=== PATIENT | male | born 1960 | race Caucasian/White ===

== ENCOUNTER 2020-11-30 07:18 | Day surgery (SDC) | payer MEDICARE, MEDICAID ==
[2020-11-23 12:12] LABS: BASOPHILS % (AUTO) 0.8 % (0-1); EOSINOPHILS # (AUTO) 0.1 X10'3 (0-0.9); EOSINOPHILS % (AUTO) 3.8 % (0-6); LYMPHOCYTES # (AUTO) 1.2 X10'3 (1.1-4.8); LYMPHOCYTES % (AUTO) 32.8 % (21-51); MEAN CORPUSCULAR HEMOGLOBIN 20.6 PG (27.0-31.0); MEAN CORPUSCULAR HGB CONC 30.7 g/dL (33.0-36.5); MEAN CORPUSCULAR VOLUME 67.1 FL (78-98); MEAN PLATELET VOLUME 7.7 FL (7.4-10.4); MONOCYTES # (AUTO) 0.3 X10'3 (0-0.9); MONOCYTES % (AUTO) 8.5 % (2-12); NEUTROPHILS # (AUTO) 1.9 X10'3 (1.8-7.7); NEUTROPHILS % (AUTO) 54.1 % (42-75); PRE OP HEMATOCRIT 28.7 % (42.0-52.0); PRE OP PLATELET COUNT 252 X10'3 (140-440); RED BLOOD COUNT 4.28 X10'6 (4.70-6.10); RED CELL DISTRIBUTION WIDTH 18.9 % (11.5-14.5)
[2020-11-23 12:17] LABS: PRE OP HEMOGLOBIN 8.8 g/dL (14.0-17.9)
[2020-11-23 12:21] LABS: ALBUMIN 3.4 G/DL (3.4-5.0); ALBUMIN/GLOBULIN RATIO 0.9 (1.1-1.5); ALKALINE PHOSPHATASE 77 IU/L (46-116); BLOOD UREA NITROGEN 22 MG/DL (7-18); BUN/CREATININE RATIO 23.9 (5.4-32.0); CALCIUM 8.2 MG/DL (8.5-10.1); CHLORIDE 107 MMOL/L (99-107); CREATININE 0.92 MG/DL (0.60-1.10); PRE OP ALT 24 U/L (30-65); PRE OP ANION GAP 5 (8-16); PRE OP AST 26 U/L (10-37); PRE OP BILIRUB, TOTAL 0.3 MG/DL (0.0-1.0); PRE OP GLUCOSE 79 MG/DL (70-104); PRE OP SODIUM 140 MMOL/L (135-145); TOTAL CARBON DIOXIDE 28.2 MMOL/L (24-32); TOTAL PROTEIN 7.1 G/DL (6.4-8.2); eGFR 84 ML/MIN
[2020-11-23 12:56] LABS: PLATELET ESTIMATE NORMAL
[2020-11-23 13:04] LABS: ANISOCYTOSIS 2+; ELLIPTOCYTES FEW; HYPOCHROMASIA 2+; MICROCYTOSIS 2+; POLYCHROMASIA 1+; TEAR DROP CELLS FEW
[~2020-11-30] VITALS: Ht 170.2 cm; Wt 100.0 kg
[2020-11-30] VITALS (9 sets, daily range): BP systolic 101–139; BP diastolic 52–87
[~2020-11-30 07:18] MED LIST: ALPR-624 PO; AMPH30TA3 PO; GABA600T PO; MULT-1085 PO; ceFAZolin 2gm in dextrose, iso 50 ML IV ONE; famotidine 20mg tablet PO ONE; ringers solution, lacted 1,000 ML IV SCH
[2020-11-30] MEDS ORDERED: ondansetron/PF 4mg/2ml inj IV PRN (09:35)
[2020-11-30] MEDS ORDERED: morphine 2 MG/ML inj. syringe IV PRN (09:35)
[2020-11-30] MEDS ORDERED: labetalol 20mg/4ml (5mg/ml) syringe IV PRN (09:35)
[2020-11-30] MEDS ORDERED: fentaNYL/PF 50MCG/1 ML 2ML syringe IV PRN ×2 (09:35)
[2020-11-30] MEDS ORDERED: hydrALAZINE 20mg/ml inj. IV PRN (09:35)
[2020-11-30] MEDS ORDERED: ringers solution, lacted 1,000 ML IV SCH (09:35)
[2020-11-30] MEDS ORDERED: morphine 4 MG/ML inj SYRINge IV PRN (09:35)
[2020-11-30] MEDS ORDERED: midazolam 2 mg/2 ml injection ONE (09:40)
[2020-11-30] MEDS ORDERED: fentaNYL/PF 50MCG/1 ML 2ML syringe ONE (09:40)
[2020-11-30] MEDS ORDERED: ROPIVAcaine 0.5% (5mg/ml) 30ml vial ONE ×2 (09:43)
[2020-11-30] MEDS ORDERED: succinylcholine 20mg/ml inj IV ONE (09:43)
[2020-11-30] MEDS ORDERED: ondansetron/PF 4mg/2ml inj ONE (09:43)
[2020-11-30] MEDS ORDERED: dexamethasone sod phosphate 4mg/ml inj. ONE (09:43)
[2020-11-30] MEDS ORDERED: propofol inj 20 ML IV ONE (09:44)
[2020-11-30] MEDS ORDERED: LIDOcaine 2% (20mg/ml) 5ml vial ONE (09:44)
[2020-11-30] MEDS ORDERED: sevoflurane 250ml liquid IH ONE (09:46)
[2020-11-30] MEDS ORDERED: ePHEDrine 50MG/ML INJ. ONE ×2 (10:18)
[2020-11-30] MEDS ORDERED: albumin (Human) 5% 250ml 250 ML IV ONE (10:24)
--- NOTE | 2020-11-30 12:20 | NUR ---
Received from OR via [facility], accompanied by Anesthesiologist DR MCLAUGHLIN and report given by Anesthesiologist. 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 Addendum: 11/30/20 at 1241 by Holly Gonzales RN Amended: Links added. Addendum: 11/30/20 at 1246 by Holly Gonzales RN ERROR: DRAINAGE ON TOP SIDE OF DRSG, NOT PALM SIDE OF DRSG.
--- NOTE | 2020-11-30 13:50 | NUR ---
PT ABLE TO PIVOT SAFELY FROM BED TO W/C W/O DIFFICULTY. D/C INSTRUCTIONS GIVEN AND GONE OVER W/PT WHO VERBALIZED UNDERSTANDING. PLACED LEFT ARM IN SLING UNTIL SENSATION RETURNS FOR SAFETY. PT D/CD TO HOME VIA W/C TO PRIVATE VEHICLE W/O INCIDENT. Addendum: 11/30/20 at 1448 by Holly Gonzales RN Amended: Links added.
== END 2020-11-30 13:50 | disposition home or self-care (01) ==
LOC: PAS 07:18
PROVIDERS: ATTEND Orthopaedic Surgery Hand Surgery
DX: S52.502K Unspecified fracture of the lower end of left radius, subsequent encounter for closed fracture with nonunion (principal); S66.212A Strain of extensor muscle, fascia and tendon of left thumb at wrist and hand level, initial encounter; E66.9 Obesity, unspecified; Z68.34 Body mass index [BMI] 34.0-34.9, adult; D64.9 Anemia, unspecified; Z20.822 Contact with and (suspected) exposure to COVID-19; Z79.899 Other long term (current) drug therapy; Z72.89 Other problems related to lifestyle; Z98.890 Other specified postprocedural states; Z98.84 Bariatric surgery status; G89.18 Other acute postprocedural pain; X58.XXXD Exposure to other specified factors, subsequent encounter; X58.XXXA Exposure to other specified factors, initial encounter; Y93.89 Activity, other specified; Y92.89 Other specified places as the place of occurrence of the external cause; Y99.8 Other external cause status
CPT/HCPCS: 20680; 25310; 25820; 36415; 64415; 64417; 76942; 80053; 82948; 85025; 87635; 93005; C1713; J0330; J1100; J2001; J2250; J2405; J2704; J3010; P9045; 85008; A4618; A7000; J2795; J7120

== ENCOUNTER 2021-09-30 13:11 | Outpatient (CLI) | payer BC, MEDICAID ==
[~2021-09-30] VITALS: Ht 170.2 cm; Wt 99.8 kg
[~2021-09-30 13:11] MED LIST changes: -ceFAZolin 2gm in dextrose, iso 50 ML IV ONE; -famotidine 20mg tablet PO ONE; -ringers solution, lacted 1,000 ML IV SCH
[2021-09-30] MEDS ORDERED: METO-384 PO (13:52)
[2021-09-30] MEDS ORDERED: DOCU-21 PO (13:52)
[2021-09-30] MEDS ORDERED: FERR325T34 PO (13:52)
[2021-09-30 14:16] LABS: BASOPHILS % (AUTO) 0.4 % (0-1); EOSINOPHILS # (AUTO) 0.1 X10'3 (0-0.9); EOSINOPHILS % (AUTO) 2.2 % (0-6); LYMPHOCYTES # (AUTO) 1.2 X10'3 (1.1-4.8); LYMPHOCYTES % (AUTO) 27.4 % (21-51); MEAN CORPUSCULAR VOLUME 91.2 FL (78-98); MEAN PLATELET VOLUME 7.9 FL (7.4-10.4); MONOCYTES # (AUTO) 0.4 X10'3 (0-0.9); MONOCYTES % (AUTO) 8.8 % (2-12); NEUTROPHILS # (AUTO) 2.7 X10'3 (1.8-7.7); NEUTROPHILS % (AUTO) 61.2 % (42-75); PRE OP HEMATOCRIT 41.5 % (42.0-52.0); PRE OP HEMOGLOBIN 14.1 g/dL (14.0-17.9); PRE OP PLATELET COUNT 197 X10'3 (140-440); RED BLOOD COUNT 4.55 X10'6 (4.70-6.10); RED CELL DISTRIBUTION WIDTH 13.5 % (11.5-14.5)
[2021-09-30 14:37] LABS: ALBUMIN 3.3 G/DL (3.4-5.0); ALBUMIN/GLOBULIN RATIO 0.9 (1.1-1.5); ALKALINE PHOSPHATASE 70 IU/L (46-116); BLOOD UREA NITROGEN 25 MG/DL (7-18); BUN/CREATININE RATIO 31.3 (5.4-32.0); CALCIUM 8.6 MG/DL (8.5-10.1); CHLORIDE 106 MMOL/L (99-107); PRE OP ALT 32 U/L (30-65); PRE OP ANION GAP 9 (8-16); PRE OP AST 25 U/L (10-37); PRE OP BILIRUB, TOTAL 0.5 MG/DL (0.0-1.0); PRE OP GLUCOSE 97 MG/DL (70-104); PRE OP POTASSIUM 3.6 MMOL/L (3.4-5.1); PRE OP SODIUM 139 MMOL/L (135-145); TOTAL CARBON DIOXIDE 23.8 MMOL/L (24-32); TOTAL PROTEIN 7.1 G/DL (6.4-8.2); eGFR > 90 ML/MIN
[2021-10-07] MEDS ORDERED: ringers solution, lacted 1,000 ML IV SCH (05:00)
[2021-10-07] MEDS ORDERED: cefazolin/dext.iso 2gm/50ml IV ONE (05:30)
[2021-10-07] MEDS ORDERED: famotidine 20mg tablet PO ONE (05:30)
== END 2021-09-30 23:59 | disposition home or self-care (01) ==
LOC: PRE-OP 13:11 → EDSTATUS 10-07 08:15
PROVIDERS: ATTEND Orthopaedic Surgery Hand Surgery
DX: Z01.812 Encounter for preprocedural laboratory examination (principal); S66.912A Strain of unspecified muscle, fascia and tendon at wrist and hand level, left hand, initial encounter; T84.498A Other mechanical complication of other internal orthopedic devices, implants and grafts, initial encounter; X58.XXXA Exposure to other specified factors, initial encounter; Y93.89 Activity, other specified; Y92.89 Other specified places as the place of occurrence of the external cause; Y99.8 Other external cause status; Z20.822 Contact with and (suspected) exposure to COVID-19
CPT/HCPCS: 36415; 80053; 85025; 93005; U0003; U0005; J0690; J7120